=== PATIENT | female | born 1955 | race Caucasian/White ===

== ENCOUNTER → 2016-09-15 | Day surgery (SDC) | payer OTHER ==
[~2016-09-15] MED LIST: ACYC200O PO; ASPI325T PO; BUPIVACAINE HCL PF 0.75% 30 ML VIAL ONE; CLINDAMYCIN PHOS 600 MG/4 ML VIAL ONE; FIORTAB4 PO; IMIT50TA PO; KETOROLAC TROMETHAMINE 30 MG/ML (IVP) VIAL IV PUSH ONE; LACTATED RINGER'S 1000 ML INJ 1,000 ML ONE; LIDOCAINE 1.5%/EPINEPHrine 1:200,000 PF SOLN 30 ML AMP ONE; MIDAZOLAM HCL 2 MG/2 ML VIAL ONE; MIDAZOLAM HCL 5 MG/ML VIAL (1 ML) ONE; NS 100 ML (PAB BAG) 100 ML IV ONE; ONDANSETRON HCL 4 MG/2 ML VIAL IV PUSH ONE; PROPOFOL 200 MG/20 ML AMP IV ONE
--- NOTE | 2016-09-16 07:00 | MP ---
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 PROCEDURES PERFORMED Repair and exploration of left lateral extensor tendon ankle peroneal tendon repair. SPECIMEN Soft tissue sent for pathological analysis. ESTIMATED BLOOD LOSS Less than 30 mL. COMPLICATIONS None. ANESTHESIA General with popliteal block. TOURNIQUET TIME 45 minutes at a setting of 215 mmHg. PLAN OF ACTIVITY PACU, then D/C home once stable per same-day surgery criteria. JUSTIFICATION FOR PROCEDURE A pleasant 61-year-old female with a history of peroneal tendon tear that did not heal with conservative modality. We devised a plan to move forward with repair of the tendon. The patient understood there were complications of weakness, sural neuritis. No guarantees were guaranteed or implied regarding the outcome. PROCEDURE IN DETAIL Under mild sedation the patient is brought into the operating room, placed on the operating table in supine position. Following the induction of general anesthesia, the patient was then positioned in a lateral decubitus position. Of note the patient received a popliteal block before entering the operative suite. The patient's left lower extremity was then scrubbed, prepped and draped in the usual aseptic fashion. The foot was elevated and exsanguinated and the previously placed mid-calf tourniquet inflated to 215 mmHg. An incision was made just at the most posterior aspect of the fibula being careful to avoid the distribution of the sural nerve. This coursed down to the styloid process. An incision was made along this area. The most distal portion of the incision did intersect with the sural nerve which was identified and protected throughout the procedure. A linear incision was then made down through the peroneal tendon sheath and there was noted to be chronic inflammatory fluid. It appeared to have viscous straw-like fluid. Upon incising the sheath, the peroneus brevis was identified and there is noted to be a large bulbous appearance that appeared to be chronic inflammatory findings consistent with a partial tear. The posterior/inferior half of the tendon appeared to be fully intact, without pathology. The peroneus longus tendon was visualized and free from any pathology. The mass that was within the tendon was then sharply excised and sent for pathological analysis. It appeared to be hypertrophied tendon. It did not appear to be a neoplastic type entity. The tendon was then tubularized and repaired; it now seated nicely in the retro-fibular groove without any signs of subluxation. The peroneal tendon sheath was then repaired utilizing Vicryl. The deep dermis was closed utilizing Monocryl being careful not to involve the sural nerve. The skin was then closed utilizing nylon. The patient was then positioned in neutral position in a well-padded, [id number] fiberglass splint with a Monroe compressive dressing. Upon relieving the tourniquet there was a prompt hyperemic response to all digits without any delayed capillary fill time. The patient is transferred from OR to PACU with all vital signs stable. She is to have limited range motion of the knee and hip but she is non-weightbearing of the extremity. The patient will follow up within 3-5 days. YUSUF Quezada/HERBIE /2:25 PM /6:40 AM
== END | disposition home or self-care (01) ==
LOC: ESDC 10:53
PROVIDERS: ATTEND Podiatrist Foot & Ankle Surgery
DX: M66.372 Spontaneous rupture of flexor tendons, left ankle and foot (principal)
CPT/HCPCS: 01470; 28200; 64450; 88305; J1885; J2250; J2405; J3010; J7120; 88304

== ENCOUNTER 2017-07-27 11:59 | Emergency (ER) | payer OTHER ==
[~2017-07-27] VITALS: Ht 167.6 cm; Wt 96.4 kg
[~2017-07-27 11:59] MED LIST changes: -BUPIVACAINE HCL PF 0.75% 30 ML VIAL ONE; -CLINDAMYCIN PHOS 600 MG/4 ML VIAL ONE; -KETOROLAC TROMETHAMINE 30 MG/ML (IVP) VIAL IV PUSH ONE; -LACTATED RINGER'S 1000 ML INJ 1,000 ML ONE; -LIDOCAINE 1.5%/EPINEPHrine 1:200,000 PF SOLN 30 ML AMP ONE; -MIDAZOLAM HCL 2 MG/2 ML VIAL ONE; -MIDAZOLAM HCL 5 MG/ML VIAL (1 ML) ONE; -NS 100 ML (PAB BAG) 100 ML IV ONE; -ONDANSETRON HCL 4 MG/2 ML VIAL IV PUSH ONE; -PROPOFOL 200 MG/20 ML AMP IV ONE
[2017-07-27 12:04] VITALS: BP 134/69; PULSE 88; RESP 16; TEMP 98.6; O2SAT 94
[2017-07-27] MEDS ORDERED: TIOT1AER INH (12:20)
[2017-07-27] MEDS ORDERED: ATOR20TA15 PO (12:20)
[2017-07-27] MEDS ORDERED: ACYC200C66 PO (12:20)
[2017-07-27] MEDS ORDERED: ALBUAER3 INH (12:20)
[2017-07-27] MEDS ORDERED: CLAR10CA3 PO (12:20)
[2017-07-27] MEDS ORDERED: NEXI40CA PO (12:20)
[2017-07-27] MEDS ORDERED: ASPI81CH6 CHEW (12:20)
[2017-07-27] MEDS ORDERED: HYDR-3516 PO (12:20)
[2017-07-27] MEDS ORDERED: PLAV75TA29 PO (12:20)
[2017-07-27] MEDS ORDERED: METO50TA PO (12:20)
[2017-07-27] MEDS ORDERED: HYDR-3580 PO (12:29)
[2017-07-27] MEDS ORDERED: SODIUM CHLOR 0.9% 1000 ML INJ 1,000 ML IV ONE (12:32)
[2017-07-27] MEDS ORDERED: METOCLOPRAMIDE HCL 10 MG/2 ML VIAL IVP ONE (12:45)
[2017-07-27] MEDS ORDERED: KETOROLAC TROMETHAMINE 30 MG/ML (IVP) VIAL IV PUSH ONE (12:45)
[2017-07-27] MEDS ORDERED: SODIUM CHLORIDE 0.9% FLUSH 10 ML FLUSH IVF PRN (12:45)
[2017-07-27] MEDS ORDERED: diphenhydrAMINE HCL 50 MG/ML VIAL IVP ONE (12:45)
--- NOTE | 2017-07-27 12:54 | PD ---
HPI Chief Complaint: Headache Time Seen by Provider: 12:13 Travel History International Travel<30 days: No Contact w/Intl Traveler<30days: No Traveled to known affect area: No History of Present Illness HPI Patient is a 62-year-old female presents emergency department for evaluation of a headache for the past week. Patient states she has a history of migraines since the age of 9 and this feels similar. States predominantly in occipital region. She is followed by Dr. Calderon, she went to an urgent care facility was given a shot of Toradol and Zofran and was feeling better and then was discharged home, she states the headache returned later that night. She also has some photophobia but no focalized weakness. States symptoms are moderate, occipital, context and associated signs and symptoms as above. She denies thunderclap presentation, denies this being any worse than her normal headache. PFSH Past Medical History Hx Anticoagulant Therapy: Yes (asa 325mg and plavix) Cardiac Catheterization: Yes Cardiovascular Problems: Yes (htn on meds) High Cholesterol: Yes COPD: Yes Coronary Artery Disease: Yes Diminished Hearing: No GERD: Yes Headaches: Yes Hypertension: Yes Respiratory: Yes (copd) Migraines: Yes Influenza Vaccination: Yes ?: Not Past Surgical History Gynecologic Surgery: Yes (hyster) Hysterectomy: Yes Tonsillectomy: Yes Social History Alcohol Use: Yes Tobacco Use: Yes (E cig) Substance Use: No Allergies-Medications (Allergen,Severity, Reaction): Coded Allergies: penicillin G (Unverified Allergy, Unknown, 07/27/17) Reported Meds & Prescriptions Reported Meds & Active Scripts Active Reported Hydrocodone-Acetaminophen 7.5 Mg-325 Mg Tab 1 Tab PO Q4H PRN Stiolto Respimat Inh (Tiotropium-Olodaterol Inh) 2.5-2.5 Mcg/Act Aero 2 Puff INH DAILY Proair Hfa 8.5 GM Inh (Albuterol Sulfate) 90 Mcg/Act Aer 2 Puff INH Q4-6H PRN 108 mcg/actuation Aspirin Low Dose (Aspirin) 81 Mg Chew 81 Mg CHEW DAILY Claritin (Loratadine) 10 Mg Cap 10 Mg PO DAILY Nexium (Esomeprazole DR) 40 Mg Capdr 40 Mg PO DAILY Metoprolol Tartrate 50 Mg Tab 50 Mg PO DAILY Atorvastatin (Atorvastatin Calcium) 20 Mg Tab 20 Mg PO HS Plavix (Clopidogrel Bisulfate) 75 Mg Tab 75 Mg PO DAILY Acyclovir 200 Mg Cap 200 Mg PO 5 TIMES A DAY Review of Systems Except as stated in HPI: all other systems reviewed are Neg Physical Exam Narrative GENERAL: Well-developed well-nourished appears minimally uncomfortable but nontoxic. SKIN: Focused skin assessment warm/dry. HEAD: Atraumatic. Normocephalic. EYES: Pupils equal and round. No scleral icterus. No injection or drainage. ENT: No nasal bleeding or discharge. Mucous membranes pink and moist. NECK: Trachea midline. No JVD. No nuchal rigidity CARDIOVASCULAR: Regular rate and rhythm. No murmur appreciated. RESPIRATORY: No accessory muscle use. Clear to auscultation. Breath sounds equal bilaterally. GASTROINTESTINAL: Abdomen soft, non-tender, nondistended. Hepatic and splenic margins not palpable. MUSCULOSKELETAL: No obvious deformities. No clubbing. No cyanosis. No edema. NEUROLOGICAL: Awake and alert. Cranial nerves II through XII grossly intact and nonfocal, 5 out of 5 strength in all 4 extremities. Cerebellar testing negative peer PSYCHIATRIC: Appropriate mood and affect; insight and judgment normal. Data Data Last Documented VS Vital Signs Date Time Temp Pulse Resp B/P (MAP) Pulse Ox O2 Delivery O2 Flow Rate FiO2 07/27/17 14:16 07/27/17 14:00 87 16 95 Room Air 07/27/17 12:04 98.6 Orders Orders Ecg Monitoring (07/27/17 12:32) Iv Access Insert/Monitor (07/27/17 12:32) Oximetry (07/27/17 12:32) Sodium Chloride 0.9% Flush (Ns Flush) (07/27/17 12:45) Diphenhydramine Inj (Benadryl Inj) (07/27/17 12:45) Metoclopramide Inj (Reglan Inj) (07/27/17 12:45) Sodium Chlor 0.9% 1000 Ml Inj (Ns 1000 M (07/27/17 12:32) Ketorolac Inj (Toradol Inj) (07/27/17 12:45) Ed Discharge Order (07/27/17 13:43) MDM Medical Decision Making Medical Screen Exam Complete: Yes Emergency Medical Condition: Yes Differential Diagnosis Migraine headache, cluster headache, tension headache, Narrative Course Patient room to the emergency department, has a reassuring neurologic exam, headache cocktail was ordered, the patient initially drove here but states that she is called a friend and has a ride home and will not be driving home. Patient had near complete resolution of her symptoms still with some mild symptoms. She is very low risk features for headache and is no indication further workup this patient at this time. Discussed symptomatic management follow-up with neurologist to return to ED criteria Diagnosis Primary Impression: Headache Referrals: Raheem Leavitt MD Patient Instructions: Acute Headache (DC), General Instructions Disposition: 01 DISCHARGE HOME Condition: Stable Tai Avila MD July 27, 2017 12:54
[2017-07-27 13:00] VITALS: BP 125/81; PULSE 79; RESP 16; O2SAT 95
[2017-07-27 13:23] VITALS: O2SAT 95
[2017-07-27 14:00] VITALS: BP 127/77; PULSE 87; RESP 16; O2SAT 95
== END 2017-07-27 14:20 | disposition home or self-care (01) ==
LOC: PHED 11:59
DX: R51 Headache (principal); I10 Essential (primary) hypertension; J44.9 Chronic obstructive pulmonary disease, unspecified; E78.00 Pure hypercholesterolemia, unspecified; K21.9 Gastro-esophageal reflux disease without esophagitis
CPT/HCPCS: 96361; 96374; 96375; 99284; J1200; J1885; J2765; J7030